=== PATIENT | female | born 1945 | race Caucasian/White ===

== ENCOUNTER 2024-02-29 11:45 | Inpatient (IN) | payer OTHER, MEDICARE ==
[~2024-02-29] VITALS: Ht 160 cm; Wt 81.6 kg
[2024-02-29 11:49] VITALS: BP_SYST 114; PULSE 96; RESP 18; TEMP 98.3; O2SAT 98
[2024-02-29] MEDS: ONDANSETRON HCL 4 MG/2 ML VIAL IVP ONE (12:13)
[2024-02-29 12:33] LABS: BASOPHILS % (AUTO) 0.6 % (0.0-2.0); EOSINOPHILS % (AUTO) 0.1 % (0.0-4.0); HEMATOCRIT 41.8 % (36-48); HEMOGLOBIN 14.3 g/dL (12.0-16.0); LYMPHOCYTES % (AUTO) 12.6 % (20.5-51.5); MEAN CORPUSCULAR HEMOGLOBIN 30 pg (27-31); MEAN CORPUSCULAR HGB CONC 34 % (32-36); MEAN CORPUSCULAR VOLUME 89 fL (79.0-98.0); MONOCYTES # (AUTO) 0.5 K/uL (0.0-1.0); MONOCYTES % (AUTO) 6.7 % (1.7-9.3); NEUTROPHILS # (AUTO) 6.4 K/uL (1.8-7.7); PLATELET COUNT (AUTO) 196 K/uL (130-430); RED CELL DISTRIBUTION WIDTH 15.5 % (9.0-15.0); WHITE BLOOD COUNT (AUTO) 7.9 K/uL (4.8-10.8)
[2024-02-29] MEDS: ACETAMINOPHEN 500 MG TABLET PO ONE (12:52)
[2024-02-29 13:15] LABS: ANION GAP 11 (5-15); CALCIUM 8.9 mg/dL (8.4-11.0); CARBON DIOXIDE 26 mmol/L (23-29); CHLORIDE 103 mmol/L (98-107); CREATININE 1.36 mg/dL (0.55-1.30); GLUCOSE 172 mg/dL (74-106); POTASSIUM 3.9 mmol/L (3.5-5.1); SODIUM SERUM 140 mmol/L (136-145); UREA NITROGEN, BLOOD 15 mg/dL (8-21)
[2024-02-29 14:48] VITALS: BP_SYST 135; PULSE 75; RESP 20; TEMP 99.3; O2SAT 100
[2024-02-29 14:50] VITALS: BP_SYST 135; PULSE 75; RESP 20; TEMP 99.3; O2SAT 100
[2024-02-29] MEDS ORDERED: DEXL60CA4 PO (15:07)
[2024-02-29] MEDS ORDERED: FLUT1BLS10 (15:07)
[2024-02-29] MEDS ORDERED: FOLI-43 PO (15:07)
[2024-02-29] MEDS ORDERED: ACET-2634 PO (15:07)
[2024-02-29] MEDS ORDERED: EMPA10TA PO (15:07)
[2024-02-29] MEDS ORDERED: TROS60CA3 PO (15:07)
[2024-02-29] MEDS ORDERED: MAGN400T10 PO (15:07)
[2024-02-29] MEDS ORDERED: IBUP-2101 (15:07)
[2024-02-29] MEDS ORDERED: RALO60TA13 PO (15:07)
[2024-02-29] MEDS ORDERED: PREG75CA PO (15:07)
[2024-02-29] MEDS ORDERED: DULO60CA42 PO (15:07)
[2024-02-29] MEDS ORDERED: AMLO2.5T2 PO (15:07)
[2024-02-29] MEDS ORDERED: ROSU10TA2 PO (15:07)
[2024-02-29] MEDS ORDERED: SERT-436 PO (15:07)
[2024-02-29] MEDS ORDERED: OXAZ30CA PO (15:07)
[2024-02-29] MEDS: PREGABALIN 25 MG CAPSULE (LYRICA) PO ONE (15:49)
[2024-02-29] MEDS ORDERED: ACETAMINOPHEN 500 MG TABLET PO PRN (16:30)
[2024-02-29] MEDS ORDERED: DEXTROSE 50% JECT 50 ML DISP.SYRIN IVP PRN (17:00)
[2024-02-29] MEDS ORDERED: INSULIN REGULAR, HUMAN 100 UNITS/ML, 3 ML VIAL (humuLIN R) SUBCUT PRN (17:00)
[2024-02-29 17:16] LABS: INR 1.1 (0.8-1.2); PROTHROMBIN TIME 11.2 SECS (9.5-12.5)
[2024-02-29 17:28] LABS: ALANINE AMINOTRANSFERASE 35 U/L (12-78); ALBUMIN 3.3 g/dL (3.4-4.8); ANION GAP 12 (5-15); ASPARTATE AMINOTRANSFERASE 46 U/L (10-37); CALCIUM 8.3 mg/dL (8.4-11.0); CARBON DIOXIDE 24 mmol/L (23-29); CHLORIDE 103 mmol/L (98-107); CREATININE 1.34 mg/dL (0.55-1.30); GLUCOSE 113 mg/dL (74-106); POTASSIUM 4.3 mmol/L (3.5-5.1); SODIUM SERUM 139 mmol/L (136-145); TOTAL BILIRUBIN 1.1 mg/dL (0.0-1.0); TOTAL PROTEIN, SERUM 6.3 g/dL (6.4-8.3); UREA NITROGEN, BLOOD 18 mg/dL (8-21)
[2024-02-29] MEDS: ASPIRIN 81 MG TAB.CHEW PO ONE ×2 (17:29→18:31)
[2024-02-29] MEDS: ENOXAPARIN SODIUM 80 MG/0.8 ML SYRINGE SUBCUT SCH (18:58)
[2024-02-29 20:00] VITALS: BP_SYST 107; PULSE 84; RESP 16; TEMP 98.6; O2SAT 95
[2024-02-29] MEDS ORDERED: OXAZEPAM 30 MG PO SCH (21:00)
[2024-02-29] MEDS: PREGABALIN 25 MG CAPSULE (LYRICA) PO SCH (21:02)
[2024-02-29] MEDS: OXAZEPAM 30 MG PO SCH (21:04)
[2024-03-01] VITALS (7 sets, daily range): BP systolic 101–123; PULSE 73–98; RESP 16–18; TEMP 97.9–98.7; O2SAT 92–96
[2024-03-01 04:40] LABS: BASOPHILS % (AUTO) 0.5 % (0.0-2.0); EOSINOPHILS % (AUTO) 0.2 % (0.0-4.0); HEMATOCRIT 40.7 % (36-48); HEMOGLOBIN 13.7 g/dL (12.0-16.0); LYMPHOCYTES # (AUTO) 2.5 K/uL (1.0-5.5); LYMPHOCYTES % (AUTO) 29.7 % (20.5-51.5); MEAN CORPUSCULAR HEMOGLOBIN 30 pg (27-31); MEAN CORPUSCULAR HGB CONC 34 % (32-36); MEAN CORPUSCULAR VOLUME 89 fL (79.0-98.0); MONOCYTES # (AUTO) 0.7 K/uL (0.0-1.0); MONOCYTES % (AUTO) 8.3 % (1.7-9.3); NEUTROPHILS # (AUTO) 5.2 K/uL (1.8-7.7); NEUTROPHILS % (AUTO) 61.3 % (40.0-70.0); PLATELET COUNT (AUTO) 200 K/uL (130-430); RED BLOOD CELL COUNT(AUTO) 4.56 MIL/uL (4.2-6.2); RED CELL DISTRIBUTION WIDTH 15.8 % (9.0-15.0); WHITE BLOOD COUNT (AUTO) 8.4 K/uL (4.8-10.8)
[2024-03-01 05:06] LABS: ALANINE AMINOTRANSFERASE 39 U/L (12-78); ALBUMIN 3.2 g/dL (3.4-4.8); ANION GAP 7 (5-15); ASPARTATE AMINOTRANSFERASE 41 U/L (10-37); CALCIUM 8.2 mg/dL (8.4-11.0); CARBON DIOXIDE 30 mmol/L (23-29); CHLORIDE 104 mmol/L (98-107); CHOLESTEROL 163 mg/dL (<200); CREATININE 1.68 mg/dL (0.55-1.30); FREE T4 (FREE THYROXINE) 1.4 ng/dL (0.6-1.6); GLUCOSE 98 mg/dL (74-106); HDL CHOLESTEROL 38 mg/dL (>55); POTASSIUM 3.9 mmol/L (3.5-5.1); SODIUM SERUM 141 mmol/L (136-145); THYROID STIMULATING HORMONE 1.04 uIu/mL (0.34-4.82); TOTAL BILIRUBIN 0.7 mg/dL (0.0-1.0); TOTAL PROTEIN, SERUM 6.1 g/dL (6.4-8.3); TRIGLYCERIDES 102 mg/dL (30-150); UREA NITROGEN, BLOOD 27 mg/dL (8-21)
[2024-03-01 05:41] LABS: HEMOGLOBIN A1C 6.3 % (<5.7)
[2024-03-01] MEDS: TROSPIUM CHLORIDE 60 MG PO SCH (09:00)
[2024-03-01] MEDS ORDERED: TROSPIUM CHLORIDE 60 MG PO SCH (09:00)
[2024-03-01] MEDS ORDERED: amLODIPine BESYLATE 5 MG TABLET PO SCH (09:00)
[2024-03-01] MEDS: ASPIRIN 81 MG TAB.CHEW PO SCH (09:23)
[2024-03-01] MEDS: DULoxetine HCL 30 MG CAPSULE.DR (CYMBALTA) PO SCH (09:23)
[2024-03-01] MEDS: MAGNESIUM OXIDE 400 MG TABLET PO SCH (09:24)
[2024-03-01] MEDS: ATORVASTATIN 20 MG TABLET PO SCH (09:24)
[2024-03-01] MEDS: SERTRALINE HCL 50 MG TABLET PO SCH (09:24)
[2024-03-01] MEDS: PANTOPRAZOLE SODIUM 40 MG TAB PO SCH (09:24)
[2024-03-01] MEDS: FOLIC ACID 1 MG TABLET PO SCH (09:25)
[2024-03-01] MEDS: EMPAGLIFLOZIN 10 MG TABLET PO SCH (09:31)
[2024-03-01] MEDS: RALOXIFENE HCL 60 MG TABLET (EVISTA) PO SCH (09:32)
[2024-03-01] MEDS: NACL 0.9% 1,000 ML IV SCH (10:29)
[2024-03-01] MEDS ORDERED: IPRATROPIUM/ALBUTEROL SULFATE 3 ML AMPUL.NEB (DUONEB) INH PRN (17:30)
[2024-03-01] MEDS: IPRATROPIUM/ALBUTEROL SULFATE 3 ML AMPUL.NEB (DUONEB) INH SCH (20:00)
[2024-03-02] VITALS (11 sets, daily range): BP systolic 88–131; PULSE 70–131; RESP 16–18; TEMP 97.6–98.7; O2SAT 95–99
[2024-03-02 05:47] LABS: ALANINE AMINOTRANSFERASE 22 U/L (12-78); ALBUMIN 2.4 g/dL (3.4-4.8); ANION GAP 6 (5-15); ASPARTATE AMINOTRANSFERASE 19 U/L (10-37); CALCIUM 7.4 mg/dL (8.4-11.0); CARBON DIOXIDE 28 mmol/L (23-29); CHLORIDE 109 mmol/L (98-107); CREATININE 1.28 mg/dL (0.55-1.30); GLUCOSE 114 mg/dL (74-106); POTASSIUM 4.2 mmol/L (3.5-5.1); SODIUM SERUM 143 mmol/L (136-145); TOTAL BILIRUBIN 0.4 mg/dL (0.0-1.0); UREA NITROGEN, BLOOD 20 mg/dL (8-21)
[2024-03-02 06:50] LABS: BILIRUBIN,URINE NEGATIVE (NEGATIVE); BLOOD, URINE NEGATIVE (NEGATIVE); CLARITY/URINE CLEAR (CLEAR); COLOR,URINE YELLOW (YELLOW); GLUCOSE,URINE 3+ (NEGATIVE); KETONES,URINE NEGATIVE (NEGATIVE); LEUKOCYTE ESTERASE ,URINE NEGATIVE (NEGATIVE); NITRITE, URINE NEGATIVE (NEGATIVE); PH,URINE 5.5 (5.0-8.0); PROTEIN URINE NEGATIVE (NEGATIVE); UROBILINOGEN,URINE 0.2 (0.2-1.0)
[2024-03-03] VITALS (11 sets, daily range): BP systolic 18–142; PULSE 95–130; RESP 17–19; TEMP 98.1–98.7; O2SAT 93–98
[2024-03-03 07:15] LABS: BASOPHILS % (AUTO) 0.5 % (0.0-2.0); EOSINOPHILS % (AUTO) 0.5 % (0.0-4.0); HEMATOCRIT 32.2 % (36-48); HEMOGLOBIN 10.9 g/dL (12.0-16.0); LYMPHOCYTES % (AUTO) 19.4 % (20.5-51.5); MEAN CORPUSCULAR HEMOGLOBIN 30 pg (27-31); MEAN CORPUSCULAR HGB CONC 34 % (32-36); MEAN CORPUSCULAR VOLUME 90 fL (79.0-98.0); MONOCYTES # (AUTO) 0.4 K/uL (0.0-1.0); MONOCYTES % (AUTO) 7.7 % (1.7-9.3); NEUTROPHILS # (AUTO) 3.7 K/uL (1.8-7.7); NEUTROPHILS % (AUTO) 71.9 % (40.0-70.0); PLATELET COUNT (AUTO) 128 K/uL (130-430); RED BLOOD CELL COUNT(AUTO) 3.58 MIL/uL (4.2-6.2); RED CELL DISTRIBUTION WIDTH 15.3 % (9.0-15.0); WHITE BLOOD COUNT (AUTO) 5.2 K/uL (4.8-10.8)
[2024-03-03 07:29] LABS: ANION GAP 8 (5-15); CALCIUM 7.5 mg/dL (8.4-11.0); CARBON DIOXIDE 26 mmol/L (23-29); CHLORIDE 109 mmol/L (98-107); CREATININE 1.09 mg/dL (0.55-1.30); GLUCOSE 130 mg/dL (74-106); SODIUM SERUM 143 mmol/L (136-145); UREA NITROGEN, BLOOD 16 mg/dL (8-21)
[2024-03-03] MEDS ORDERED: ASA81 PO (13:58)
== END 2024-03-03 16:00 | disposition home health service (06) | DRG 280 ==
LOC: SED 11:45 → STU 13:44 → SMU 14:28 → STU 15:00
PROVIDERS: ADMIT Internal Medicine; ATTEND Internal Medicine
DX: I95.1 Orthostatic hypotension (principal); N17.0 Acute kidney failure with tubular necrosis; I21.A1 Myocardial infarction type 2; E11.22 Type 2 diabetes mellitus with diabetic chronic kidney disease; Z96.653 Presence of artificial knee joint, bilateral; N18.9 Chronic kidney disease, unspecified; J44.9 Chronic obstructive pulmonary disease, unspecified; E86.0 Dehydration; I12.9 Hypertensive chronic kidney disease with stage 1 through stage 4 chronic kidney disease, or unspecified chronic kidney disease; E66.9 Obesity, unspecified; M79.7 Fibromyalgia; S09.8XXA Other specified injuries of head, initial encounter; M06.9 Rheumatoid arthritis, unspecified; W18.39XA Other fall on same level, initial encounter; G89.4 Chronic pain syndrome; Z79.899 Other long term (current) drug therapy; Z91.81 History of falling; Y93.89 Activity, other specified; Y92.89 Other specified places as the place of occurrence of the external cause; Y99.8 Other external cause status; Z68.31 Body mass index [BMI] 31.0-31.9, adult; F41.9 Anxiety disorder, unspecified; F32.A Depression, unspecified; K21.9 Gastro-esophageal reflux disease without esophagitis; K58.9 Irritable bowel syndrome, unspecified; G62.9 Polyneuropathy, unspecified; M19.90 Unspecified osteoarthritis, unspecified site; Z96.649 Presence of unspecified artificial hip joint
CPT/HCPCS: 36415; 70450-TC; 71045; 80048; 80053; 80061; 81001; 81003; 82948; 83037; 83735; 83880; 84439; 84443; 84484; 85025; 85610; 85730; 93005; 93306; 94070; 94640; 94760; 96374; 97110-GP; 97116-GP; 97530-GP; 99285; G0378; J1650; J2405